=== PATIENT | female | born 1995 | race Two or more races ===

== ENCOUNTER 2017-04-29 00:54 | Emergency (ER) | payer MEDICAID ==
[~2017-04-29] VITALS: Ht 152.4 cm; Wt 67.1 kg
[~2017-04-29 00:54] MED LIST: NKM
[2017-04-29 01:15] VITALS: BP 132/71
[2017-04-29] MEDS ORDERED: Norco 5mg/325mg tab ORAL ONE (01:15)
[2017-04-29] MEDS ORDERED: HYDROCODON-ACE1 EA15 ORAL (02:26)
--- NOTE | 2017-04-29 02:28 | Emergency Room Report ---
History of Present Illness General Chief Complaint: Lower Extremity Injury Source: Patient Present Illness HPI Is a 21-year-old female with no past medical history. She presents with chief complaint of left ankle pain. She was dancing her high heel when she twisted her ankle. She felt snap. Onset was acute and occurred just prior to arrival. Unable to bear weight. Pain is severe. 10 out of 10. No radiation. Allergies: Coded Allergies: NO KNOWN ALLERGIES (Unverified Allergy, Unknown, 02/25/15) Patient History Past Medical History: see triage record, old chart reviewed Past Surgical History: none Pertinent Family History: none Social History: Denies: smoking Last Menstrual Period: 4 weeks ago Now: No Immunizations: other Reviewed Nursing Documentation: PMH: Agreed, PSxH: Agreed Nursing Documentation-PMH Past Medical History: No Stated History Hx Cardiac Problems: No Hx Gastrointestinal Problems: No Hx Neurological Problems: No Review of Systems Eye: Denies: eye pain, blurred vision ENT: Denies: ear pain, nose congestion, throat swelling Respiratory: Denies: cough, shortness of breath Cardiovascular: Denies: chest pain, palpitations Gastrointestinal: Denies: abdominal pain, diarrhea, nausea, vomiting Musculoskeletal: Reports: joint pain, joint swelling, Denies: back pain Skin: Denies: rash Neurological: Denies: headache, numbness Endocrine: Denies: increased thirst, increased urine Hematologic/Lymphatic: Denies: easy bruising All Other Systems: negative except mentioned in HPI Physical Exam Vital Signs Date Time Temp Pulse Resp B/P (MAP) Pulse Ox O2 Delivery O2 Flow Rate FiO2 04/29/17 01:04 98.6 120 16 127/74 99 Room Air vitals with tachycardia Sp02 EP Interpretation: reviewed, normal General Appearance: well appearing, no apparent distress, alert Head: normocephalic, atraumatic Eyes: bilateral eye PERRL, bilateral eye EOMI ENT: hearing grossly normal, normal pharynx Neck: full range of motion, supple, no meningismus Respiratory: chest non-tender, lungs clear, normal breath sounds Cardiovascular #1: regular rate, rhythm, no murmur Gastrointestinal: normal bowel sounds, non tender, no mass, no organomegaly, no bruit, non-distended Musculoskeletal: back normal, other - Left ankle with edema and tenderness over the lateral malleolus. Unable to do range of motion because of severe pain. Dorsalis pedis pulse 2+. Sensation normal. Psychiatric: mood/affect normal Skin: warm/dry Procedures Splinting Splinting : Consent: Verbal Location: Left ankle Splint: poserior short Pre-Proc Neuro Vasc Exam: normal Post-Proc Neuro Vasc Exam: normal Patient Tolerated: Well Complications: None Progress patient placed in a short leg posterior and sugar tong splint. Crutches given. Medical Decision Making Diagnostic Impression: Primary Impression: Fibula fracture Qualified Codes: S82.65XA - Nondisplaced fracture of lateral malleolus of left fibula, initial encounter for closed fracture ER Course Patient with fracture of the distal fibula. No displacement. Patient splinted and referred to orthopedic. Other X-Ray Diagnostic Results Other X-Ray Diagnostic Results : X-Ray ordered: X-ray of left ankle # of Views/Limited Vs Complete: 3 View Indication: Pain EP Interpretation: Yes Interpretation: no dislocation, other - acute fracture of the distal fibula. Soft tissue swelling. Impression: Other - distal fibulla frx. Electronically Signed by: Carter Weaver MD Last Vital Signs Date Time Temp Pulse Resp B/P (MAP) Pulse Ox O2 Delivery O2 Flow Rate FiO2 04/29/17 01:04 98.6 120 16 127/74 99 Room Air Status: improved Disposition: HOME, SELF-CARE Condition: Stable Scripts Hydrocodone/Acetaminophen 5-325* (HYDROCODONE/ACETAMINOPHEN 5-325*) 1 Each Tablet 1 TAB ORAL Q6H Y for For Pain, #30 TAB 0 Refills Prov: CARTER WEAVER M.D. 04/29/17 Referrals: NOT CHOSEN JESI/,REFERRING (PCP) Additional Instructions: Followup with your DrAndrea in 7 days. Return if worse. CARTER WEAVER M.D. Apr 29, 2017 02:28
[2017-04-29 02:50] VITALS: BP 127/67
[2017-04-29 03:00] VITALS: BP 127/67
--- NOTE | 2017-04-29 09:29 | Diagnostic Imaging Report ---
Indication: Pain status post injury Technique: XRAY Ankle Compl Min 3v L Comparison: None Findings: There is significant swelling about the lateral malleolus. There is an oblique, minimally displaced transsyndesmotic fracture of the distal fibula. There is no associated fracture of the posterior or medial malleolus. Ankle mortise appears intact on these nonstress views. No radiopaque foreign body seen. Impression: Minimally displaced fracture of the distal fibula as above. This corresponds with the interpretation of the treating ER physician as documented in the electronic medical record.
== END 2017-04-29 03:00 | disposition home or self-care (01) ==
LOC: EMR 01:22
DX: S82.492A Other fracture of shaft of left fibula, initial encounter for closed fracture (principal); X50.1XXA Overexertion from prolonged static or awkward postures, initial encounter; Y93.41 Activity, dancing; Y92.89 Other specified places as the place of occurrence of the external cause
CPT/HCPCS: 29515; 99284

== ENCOUNTER 2018-04-18 17:39 | Emergency (ER) | payer MEDICAID ==
[~2018-04-18] VITALS: Ht 152.4 cm; Wt 63.5 kg
[~2018-04-18 17:39] MED LIST changes: +HYDROCODON-ACE1 EA15 ORAL
--- NOTE | 2018-04-18 18:04 | Emergency Room Report ---
History of Present Illness General Chief Complaint: Female Urogenital Problems Source: Patient Present Illness HPI 22-year-old female patient presents the ER complaining of heavy vaginal bleeding times 1 day. Reports that she thinks she is on her menstrual period however states that it is irregular. Reports that she does not on any control medication. Reports bleeding is stopped since it began initially. Reports she experienced some dizziness after the bleeding symptoms began. Denies syncope. Reports passage of clots. Denies . Reports no recent sexual activity. Denies dysuria or vaginal discharge. Reports mild abdominal cramping earlier today, states she took some Tylenol and the symptoms have improved, denies abdominal pain currently. Reports mild lower back pain. Denies fever, chest pain, shortness of breath. Denies other aggravating or relieving factors. Denies diarrhea. Denies sexual activity for over the past 2 months. Reports her LMP was in February. Allergies: Coded Allergies: NO KNOWN ALLERGIES (Unverified Allergy, Unknown, 02/25/15) Patient History Past Medical History: see triage record Now: No Reviewed Nursing Documentation: PMH: Agreed; PSxH: Agreed Nursing Documentation-PMH Past Medical History: No Stated History Hx Cardiac Problems: No Hx Gastrointestinal Problems: No Hx Neurological Problems: No Review of Systems All Other Systems: negative except mentioned in HPI Physical Exam Vital Signs Date Time Temp Pulse Resp B/P (MAP) Pulse Ox O2 Delivery O2 Flow Rate FiO2 04/18/18 17:46 98.2 70 17 118/74 99 Room Air Sp02 EP Interpretation: reviewed, normal General Appearance: well appearing, no apparent distress, alert, GCS 15, non- toxic Head: normocephalic, atraumatic Eyes: bilateral eye normal inspection, bilateral eye PERRL ENT: hearing grossly normal, normal pharynx, no angioedema, normal voice, uvula midline, moist mucus membranes Neck: full range of motion Respiratory: lungs clear, normal breath sounds, no rhonchi, no respiratory distress, no accessory muscle use, no wheezing, speaking full sentences Cardiovascular #1: regular rate, rhythm, no edema Gastrointestinal: non tender, soft, no mass, non-distended, no guarding, no rebound Genitourinary: no CVA tenderness, other - Cervical os open, blood and tissue noted in vaginal canal, no active bleeding, no cervical motion tenderness Musculoskeletal: back normal, digits/nails normal, gait/station normal, normal range of motion, non-tender Neurologic: alert, oriented x3, responsive, motor strength/tone normal, sensory intact Psychiatric: mood/affect normal Skin: no rash Medical Decision Making PA Attestation Dr. Son is my supervising Physician whom patient management has been discussed with. Diagnostic Impression: Primary Impression: Incomplete ER Course Pt presents to ED c/o vaginal bleeding x1 day. DDX considered but are not limited to threatened , incomplete , ectopic, UTI, septic , fibroids, dysfunctional uterine bleeding, STI, ovarian torsion, anemia. Negative Rovsing, no fever, low suspicion for appendicitis, does not require CT at this time. VITAL SIGNS are WNL, patient is afebrile Ordered CBC, CMP, Type and Screen, UA, UCG, bHCG, IV NS and pelvic US. Tylenol for pain control. ER COURSE: Provided with Tylenol and IV fluids. CBC and CMP unremarkable, H&H normal, mild elevation in WBCS without left shift , likely due to pain symptoms. UA results shows elevated RBCs, no signs of infection. Urine positive BetaHCG 410 Rh antibody positive Blood type Results discussed with patient. Pelvic US shows endometrial thickening measuring 1.5 cm. Complex echodensity and fluid within endometrial canal. Definite intrauterine gestational sac not identified. In a patient with history of positive test, differential considerations would include very early intrauterine , incomplete or possible nonidentified ectopic . Clinical correlation with serial beta hCG and short-term ultrasound follow-up recommended. Ovaries are unremarkable bilaterally, both of which demonstrate Doppler vascular flow signal. Minimal pelvic free fluid in cul-de-sac. Discuss results with the patient. Provided patient with copy of results. Instructed patient to followup with PCP and discuss results of report with patient, discuss need for further treatment and referral. Provided with contact information for free low-cost healthcare clinics, women's health clinics and OPERATIONS TE[employer] specialist, advised contact and follow-up in 24-48 hours. Pelvic exam: cervical os opened. Performed with female nurse present. Likely incomplete . Low suspicion for ectopic. Discussed patient care with supervising physician Dr. Son. Patient resting comfortably, in no acute distress, nontoxic appearing, hemodynamically stable, in no acute distress. OK for outpatient followup and treatment. Patient reports pain symptoms resolved since onset. Informed patient to take Tylenol only for pain symptoms, do not take Motrin/ Ibuprofen. F/u with OBGYN in in 24-48 hours, need serial Beta HCG and repeat US. DISCHARGE: -Rx provided for Tylenol for pain At this time pt. is stable for d/c to home. At this time patient is resting comfortably, in no acute distress, nontoxic appearing, smiling and talking without difficulty. Will provide printed patient care instructions, and any necessary prescriptions. Patient instructed to follow with OBGYN for further treatment and referral as needed. Care plan and follow up instructions have been discussed with the patient prior to discharge. Patient reports understanding and agreement to treatment plan. Patient questions asked and answered. ER precautions given, patient instructed to return to ER immediately for any new or worsening of symptoms. - Please note that this Emergency Department Report was dictated using [employer] repair technician technology software, occasionally this can lead to erroneous entry secondary to interpretation by the dictation equipment. Labs Test 04/18/18 18:20 04/18/18 19:26 Urine Color Pale yellow Urine Appearance Slightly cloudy Urine pH 5 (4.5-8.0) Urine Specific [place] 1.025 (1.005-1.035) Urine Protein 2+ (NEGATIVE) Urine Glucose (UA) Negative (NEGATIVE) Urine Ketones Negative (NEGATIVE) Urine Blood 5+ (NEGATIVE) Urine Nitrite Negative (NEGATIVE) Urine Bilirubin Negative (NEGATIVE) Urine Urobilinogen Normal MG/DL (0.0-1.0) Urine Leukocyte Esterase 2+ (NEGATIVE) Urine RBC Tntc /HPF (0 - 2) Urine WBC 2-4 /HPF (0 - 2) Urine Squamous Epithelial Cells Occasional /LPF Urine Bacteria Occasional /HPF (NONE) Urine HCG, Qualitative Positive (NEGATIVE) White Blood Count 11.4 K/UL (4.8-10.8) Red Blood Count 4.43 M/UL (4.20-5.40) Hemoglobin 13.4 G/DL (12.0-16.0) Hematocrit 39.7 % (37.0-47.0) Mean Corpuscular Volume 90 FL (80-99) Mean Corpuscular Hemoglobin 30.2 PG (27.0-31.0) Mean Corpuscular Hemoglobin Concent 33.7 G/DL (32.0-36.0) Red Cell Distribution Width 11.8 % (11.6-14.8) Platelet Count 259 K/UL (150-450) Mean Platelet Volume 7.5 FL (6.5-10.1) Neutrophils (%) (Auto) 66.0 % (45.0-75.0) Lymphocytes (%) (Auto) 26.7 % (20.0-45.0) Monocytes (%) (Auto) 5.6 % (1.0-10.0) Eosinophils (%) (Auto) 0.8 % (0.0-3.0) Basophils (%) (Auto) 1.0 % (0.0-2.0) Sodium Level 139 MMOL/L (136-145) Potassium Level 3.7 MMOL/L (3.5-5.1) Chloride Level 105 MMOL/L (98-107) Carbon Dioxide Level 24 MMOL/L (21-32) Anion Gap 10 mmol/L (5-15) Blood Urea Nitrogen 7 mg/dL (7-18) Creatinine 0.5 MG/DL (0.55-1.30) Estimat Glomerular Filtration Rate > 60 mL/min (>60) Glucose Level 108 MG/DL (74-106) Calcium Level 9.1 MG/DL (8.5-10.1) Total Bilirubin 0.3 MG/DL (0.2-1.0) Aspartate Amino Transf (AST/SGOT) 23 U/L (15-37) Alanine Aminotransferase (ALT/SGPT) 26 U/L (12-78) Alkaline Phosphatase 98 U/L (46-116) Total Protein 7.7 G/DL (6.4-8.2) Albumin 3.4 G/DL (3.4-5.0) Globulin 4.3 g/dL Albumin/Globulin Ratio 0.8 (1.0-2.7) Lipase 112 U/L (73-393) Human Chorionic Gonadotropin, Quant 410 mIU/mL (1-6) CT/MRI/US Diagnostic Results CT/MRI/US Diagnostic Results : Imaging Test Ordered: Pelvic ultrasound Impression Per master technician, complex debris noted in canal, no IUP, bilateral ovaries with good vasculature, no torsion, trace free fluid in the posterior cul -de-sac Last Vital Signs Date Time Temp Pulse Resp B/P (MAP) Pulse Ox O2 Delivery O2 Flow Rate FiO2 04/18/18 17:46 98.2 70 17 118/74 99 Room Air Disposition: HOME, SELF-CARE Condition: Stable Scripts Acetaminophen* (TYLENOL EXTRA STRENGTH*) 500 Mg Tablet 500 MG ORAL Q8H PRN for Prn Headache/Temp > 101, #30 TAB 0 Refills Prov: Mike Schultz 04/18/18 Referrals: Paul Motley MD Patient Instructions: Incomplete Miscarriage Additional Instructions: Followup with OBGYN in 1-2 days. Need serial HCG levels and repeat US. Followup with ER if unable to followup with funeral pre arrangement specialist. Take medications as directed. Take Tylenol for pain, do not take Ibuprofen. Patient questions asked and answered. ER precautions given, patient instructed to return to ER immediately for any new or worsening of symptoms including but not limited to chest pain, SOB, intractable vomiting, profuse vaginal bleeding, abdominal pain. [facility] 410, needs repeat labs drawn and checked. Blood type O positive Rh anitbody negative Mike Schultz Apr 18, 2018 18:04
--- NOTE | 2018-04-18 18:19 | NUR ---
ED Nurse Note: patient went down for US
[2018-04-18 18:40] LABS: APPEARANCE,URINE SLIGHTLY CLOUDY; BILIRUBIN, URINE NEGATIVE (NEGATIVE); COLOR,URINE PALE YELLOW; GLUCOSE, URINE (UA) NEGATIVE (NEGATIVE); KETONES,URINE NEGATIVE (NEGATIVE); LEUKOCYTE ESTERASE ,URINE 2+ (NEGATIVE); NITRITE,URINE NEGATIVE (NEGATIVE); PH,URINE 5 (4.5-8.0); PROTEIN,URINE 2+ (NEGATIVE); UROBILINOGEN,URINE NORMAL MG/DL (0.0-1.0)
--- NOTE | 2018-04-18 19:36 | NUR ---
HAND-OFF: Report given to Christiano DUMONT
[2018-04-18 19:40] VITALS: BP 118/74
--- NOTE | 2018-04-18 19:40 | NUR ---
ED Nurse Note: pt went back from ultrasound
[2018-04-18 19:46] LABS: EOSINOPHILS % (AUTO) 0.8 % (0.0-3.0); HEMATOCRIT 39.7 % (37.0-47.0); HEMOGLOBIN 13.4 G/DL (12.0-16.0); LYMPHOCYTES % (AUTO) 26.7 % (20.0-45.0); MEAN CORPUSCULAR VOLUME 90 FL (80-99); MONOCYTES % (AUTO) 5.6 % (1.0-10.0); PLATELET COUNT 259 K/UL (150-450); RED BLOOD COUNT 4.43 M/UL (4.20-5.40); RED CELL DISTRIBUTION WIDTH 11.8 % (11.6-14.8); WHITE BLOOD COUNT 11.4 K/UL (4.8-10.8)
[2018-04-18 20:04] LABS: ANION GAP 10 mmol/L (5-15); BLOOD UREA NITROGEN 7 mg/dL (7-18); CALCIUM 9.1 MG/DL (8.5-10.1); CARBON DIOXIDE 24 MMOL/L (21-32); CHLORIDE 105 MMOL/L (98-107); CREATININE 0.5 MG/DL (0.55-1.30); POTASSIUM 3.7 MMOL/L (3.5-5.1); SODIUM 139 MMOL/L (136-145)
[2018-04-18 20:09] LABS: ALANINE AMINOTRANSFERASE 26 U/L (12-78); ALBUMIN 3.4 G/DL (3.4-5.0); ALBUMIN/GLOBULIN RATIO 0.8 (1.0-2.7); ALKALINE PHOSPHATASE 98 U/L (46-116); ASPARTATE AMINO TRANSFERASE 23 U/L (15-37); BILIRUBIN,TOTAL 0.3 MG/DL (0.2-1.0)
--- NOTE | 2018-04-18 20:37 | NUR ---
ED Nurse Note: camilla khan and rn cosme on bedside doing pelvic exam. will continue to monitor
[2018-04-18] MEDS ORDERED: TYLENOL EXTRA500 MG ORAL (21:17)
[2018-04-18 21:27] VITALS: BP 118/74
--- NOTE | 2018-04-18 21:27 | NUR ---
ED Nurse Note: Patient is being discharged cleared by ER PA. discharge paper/instruction given to the patient, patient verbalized understanding. patient a/o x4, ambulated out of Ed with steady gait, with all belongings. ID band removed.
--- NOTE | 2018-04-19 09:24 | Diagnostic Imaging Report ---
Indication: Abdominal pain, positive test, heavy vaginal bleeding, beta hCG 410 Technique: Transabdominal and transvaginal images. Doppler interrogation of the bilateral ovaries Comparison: none Findings: Uterus measures 11.1 cm in length by 6.2 cm AP. Debris is seen in the endocervical canal. Endometrium is somewhat thickened contains complex debris, some of which is hypervascular. No myometrial abnormality. Right ovary measures 2.1 cm length. Left ovary measures 2.6 cm length. Both ovaries demonstrate normal flow. No adnexal mass. There is a trace amount of free cul-de-sac fluid. Impression: No evidence of intrauterine . Differential considerations include very early , occult ectopic , spontaneous . If the latter, appearance of debris raises possibility of retained product of conception, otherwise nonspecific Trace free cul-de-sac fluid No adnexal mass demonstrated Agrees stat
== END 2018-04-18 21:27 | disposition home or self-care (01) ==
LOC: EMR 18:20
DX: O03.4 Incomplete spontaneous abortion without complication (principal)
CPT/HCPCS: 36415; 76801; 76830; 80053; 81003; 81025; 83690; 84702; 85025; 86850; 86900; 86901; 96360; 99284